=== PATIENT | female | born 2000 | race Caucasian/White ===

== ENCOUNTER → 2020-01-22 21:46 | Outpatient (CLI) | payer BC, SELFPAY | PROVIDERS: Visit Provider Nurse Practitioner | DX: L01.00 Impetigo, unspecified (principal) | CPT/HCPCS: 87070; 87205 ==

== ENCOUNTER → 2021-03-02 15:27 | Outpatient (CLI) | payer BC, SELFPAY ==
[2020-01-22 19:24] VITALS: BMI 25.8
--- NOTE | 2021-03-02 15:31 | RAD_ITS ---
STUDY: X-RAY CHEST REASON FOR EXAM: Female, 20 years old. NODULE CHEST WALL TECHNIQUE: PA and lateral views of the chest. COMPARISON: None. FINDINGS: The lungs are clear and expanded. There is no demonstrated pleural abnormality. Normal size heart. Normal mediastinum and anitha. Normal visualized pulmonary arteries. Normal visualized aortic arch and descending thoracic aorta. Normal visualized thoracic spine. Normal visualized ribs, clavicles, and shoulders. There is no demonstrated abnormality of the visualized soft tissue structures of the upper abdomen. RAD/Chest PA and Lateral IMPRESSION: Normal x-ray examination of the chest. Electronically Signed: Jesus Anand MD at 10:33 EDT , Service support ,
== END ==
PROVIDERS: PCP Pediatrics; Referring Provider Pediatrics; Visit Provider Pediatrics
DX: R22.2 Localized swelling, mass and lump, trunk (principal)
CPT/HCPCS: 71046